=== PATIENT | male | born 1990 | race Two or more races ===

== ENCOUNTER 2022-06-12 12:47 | Emergency (ER) | payer OTHER ==
[~2022-06-12] VITALS: Ht 167.6 cm; Wt 86.2 kg
--- NOTE | 2022-06-12 13:00 | NUR ---
22 YRS MALE WALKING IN LACERATION ON LT HAND GOT CUTE BY SALE NO ACTIVE BLEEDING SEEN BY DR. BARNETT
--- NOTE | 2022-06-12 13:05 | NUR ---
SAKED IN NS AND BETADINE
[2022-06-12] MEDS ORDERED: HYDROCODONE/APAP 5/325MG TABLET ONE ×2 (13:15→15:11)
[2022-06-12] MEDS ORDERED: HYDROCODONE/APAP 5/325MG TABLET PO ONE ×3 (13:30→15:30)
[2022-06-12] MEDS ORDERED: LIDOCAINE 1% INJ 50 ML MDV IJ ONE (14:21)
[2022-06-12] MEDS ORDERED: LIDOCAINE MPF 1%-EPI 1:200,000 30 ML VIAL IJ ONE (14:29)
[2022-06-12] MEDS ORDERED: BACI/NEOM/POLY B OINT PKT 1 UDPKT PACKET ONE (14:29)
[2022-06-12] MEDS ORDERED: BACI/NEOM/POLY B OINT PKT 1 UDPKT PACKET TP ONE (14:30)
[2022-06-12] MEDS ORDERED: TDAP [DIPH/PERTUSSIS/TET] 0.5 ML VIAL IM ONE ×2 (14:30)
[2022-06-12] MEDS ORDERED: LIDOCAINE HCL/PF 1% 30 ML VIAL TP ONE (14:30)
--- NOTE | 2022-06-12 14:30 | NUR ---
X RAY DONE ON LT HAND
--- NOTE | 2022-06-12 15:35 | NUR ---
sutcure done at bed side
--- NOTE | 2022-06-12 15:45 | NUR ---
suture done by hailey on lt hand tolorate procedure
[2022-06-12] MEDS ORDERED: HYDR-4303 PO (16:18)
[2022-06-12] MEDS ORDERED: CEPH500C2 PO (16:18)
--- NOTE | 2022-06-12 16:30 | NUR ---
dressing appled on lt hand
--- NOTE | 2022-06-12 17:04 | NUR ---
d/c instraction given to pt fully and verblized understood d/c home with fallow up care
[2022-06-12 17:32] VITALS: BP 140/81
== END 2022-06-12 17:33 | disposition home or self-care (01) ==
LOC: ER 13:12 → EDBD 13:12 → ER 17:33
DX: S61.412A Laceration without foreign body of left hand, initial encounter (principal); Z79.899 Other long term (current) drug therapy; X58.XXXA Exposure to other specified factors, initial encounter; Y93.89 Activity, other specified; Y92.89 Other specified places as the place of occurrence of the external cause; Y99.8 Other external cause status
CPT/HCPCS: 99284; 12002; 90471; 90715; 73130; J3490 ×3; A6403; 73140-TC

== ENCOUNTER 2022-06-17 08:43 | Emergency (ER) | payer OTHER ==
[~2022-06-17] VITALS: Ht 165.1 cm; Wt 81.6 kg
[~2022-06-17 08:43] MED LIST: CEPH500C2 PO; HYDR-4303 PO
[2022-06-17 08:50] VITALS: BP 142/68
--- NOTE | 2022-06-17 09:15 | NUR ---
Patient discharged to home in stable condition. Written and verbal after care instructions given. Patient verbalizes understanding of instruction.
== END 2022-06-17 09:15 | disposition home or self-care (01) ==
LOC: ER 08:52
DX: S61.419D Laceration without foreign body of unspecified hand, subsequent encounter (principal); X58.XXXD Exposure to other specified factors, subsequent encounter

== ENCOUNTER 2022-06-23 14:33 | Emergency (ER) | payer OTHER ==
[~2022-06-23] VITALS: Ht 165.1 cm; Wt 81.6 kg
[2022-06-23 14:59] VITALS: BP 128/71
--- NOTE | 2022-06-23 15:00 | NUR ---
VISIT FOR L HAND SUTURE REMOVAL, LAC REPAIRED DONE 06/12/22
--- NOTE | 2022-06-23 16:09 | NUR ---
SUTRE REMOVAL DONE. PT DISCHARGE HOME STABLE CONDITION.
== END 2022-06-23 16:10 | disposition home or self-care (01) ==
LOC: ER 14:36
DX: S64.493A Injury of digital nerve of left middle finger, initial encounter (principal); R20.0 Anesthesia of skin; X58.XXXA Exposure to other specified factors, initial encounter; Y93.89 Activity, other specified; Y92.89 Other specified places as the place of occurrence of the external cause; Y99.8 Other external cause status